=== PATIENT | male | born 1985 | race African-American/Black ===

== ENCOUNTER 2025-09-05 13:25 | Emergency (ER) | payer MEDICAID ==
[~2025-09-05] VITALS: Ht 185.4 cm; Wt 118.0 kg
[2025-09-05 13:29] VITALS: O2SAT 100
[2025-09-05] MEDS: DIPHENHYDRAMINE 50MG/ML VIAL IM ONE (13:45)
[2025-09-05] MEDS: HALOPERIDOL LACTATE 5MG/ML VIAL IM ONE ×2 (13:45→22:29)
[2025-09-05] MEDS: LORAZEPAM 2MG/ML UD SYRINGE IM SCH ×2 (14:00→22:28)
[2025-09-05 14:43] LABS: BASOPHILS % 0.5 % (0.0-2.0); EOSINOPHILS % 0.8 % (0.0-5.0); HEMATOCRIT. 39.5 % (42.0-52.0); HEMOGLOBIN. 13.4 g/dL (14.0-18.0); LYMPHOCYTES % 15.5 % (20.0-50.0); MEAN PLATELET VOLUME 8.1 fl (7.4-10.4); MONOCYTES % 7.0 % (2.0-8.0); NEUTROPHILS % 76.2 % (40.0-76.0); PLATELET 202 x1000/uL (130-400); RED BLOOD CELL COUNT 4.52 mill/uL (4.7-6.1); RED CELL DISTRIBUTION WIDTH 13.7 % (11.6-14.6)
[2025-09-05 14:54] LABS: CREATININE 1.1 mg/dL (0.6-1.3); UREA NITROGEN BLOOD 12 mg/dL (9-23)
[2025-09-06 03:57] LABS: CLARITY URINE CLEAR (CLEAR); COLOR URINE YELLOW (YELLOW); GLUCOSE URINE NEGATIVE (NEGATIVE); KETONES URINE 1+ (NEGATIVE); LEUKOCYTE ESTERASE URINE NEGATIVE (NEGATIVE); NITRITE URINE NEGATIVE (NEGATIVE); OCCULT BLOOD URINE NEGATIVE (NEGATIVE); PH URINE 6.5 (4.5-8.0); PROTEIN URINE NEGATIVE (NEGATIVE); SPECIFIC GRAVITY URINE 1.016 (1.005-1.030); UROBILINOGEN URINE 4.0 E.U./dL (0.2-1.0)
[2025-09-06 04:08] LABS: *AMPHETAMINES SCREEN URINE PRESUMPTIVE POSITIVE (NEGATIVE); *BARBITURATES SCREEN URINE NEGATIVE (NEGATIVE); *BENZODIAZEPINES SCREEN URINE NEGATIVE (NEGATIVE); *COCAINE SCREEN URINE NEGATIVE (NEGATIVE); METHADONE URINE SCREEN NEGATIVE (NEGATIVE)
[2025-09-06 04:09] LABS: CANNABINOID URINE SCREEN PRESUMPTIVE POSITIVE (NEGATIVE); ECSTASY MDMA SCREEN URINE CONF.TEST INDICATED (NEGATIVE); OPIATES URINE SCREEN NEGATIVE (NEGATIVE); PHENCYCLIDINE URINE SCREEN NEGATIVE (NEGATIVE)
[2025-09-06 04:24] LABS: BACTERIA URINE NONE SEEN; RBC URINE NONE SEEN /hpf (0-2); SQUAMOUS EPITHELIAL CELL URINE FEW /lpf (RARE/1+); WBC URINE 0-2 /hpf (0-2)
[2025-09-06] MEDS: LORAZEPAM 2MG/ML UD SYRINGE ONE (08:55)
[2025-09-06] MEDS: HALOPERIDOL LACTATE 5MG/ML VIAL IM ONE (08:55)
[2025-09-06] MEDS: DIPHENHYDRAMINE 50MG/ML VIAL IM ONE (08:55)
[2025-09-06] MEDS: LORAZEPAM 2MG/ML UD SYRINGE IM NR (09:54)
[2025-09-06 10:00] VITALS: BP 153/90; PULSE 88; RESP 20; TEMP 36.9; O2SAT 100
== END 2025-09-06 10:00 ==
LOC: ER 13:54 → EDBD 13:54 → ER 09-06 10:00
DX: R44.0 Auditory hallucinations (principal); R07.9 Chest pain, unspecified; Z20.822 Contact with and (suspected) exposure to COVID-19
CPT/HCPCS: 80048; 80307; 80329; 80320; 85025; 36415; 93005; 96372 ×2; 99285; 87426; 80305; 81003; J1200 ×2; J1630 ×2; J2060 ×2; Z7610 ×3; G0480